=== PATIENT | male | born 1975 | race Caucasian/White ===

== ENCOUNTER 2019-03-15 20:52 | Emergency (ER) | payer BC ==
[2019-03-15 21:03] VITALS: BMI 29.5
[2019-03-15] MEDS ORDERED: KETOROLAC TROMETHAMINE 30 MG/1 ML VIAL IM ONE (22:01)
[2019-03-15] MEDS ORDERED: ONDANSETRON 4 MG/2 ML VIAL IVPUSH ONE (22:01)
[2019-03-15] MEDS ORDERED: KETOROLAC TROMETHAMINE 30 MG/1 ML VIAL ONE (22:02)
[2019-03-15] MEDS ORDERED: ONDANSETRON 4 MG/2 ML VIAL ONE (22:03)
[2019-03-15 22:23] LABS: BASO % 0.3 % (0-2.0); EOS % 0.3 % (0-4.5); HEMATOCRIT 49.1 % (35.4-49); HEMOGLOBIN 15.8 GM/dL (11.7-16.9); MCH 27.5 pg (25.7-33.7); MCHC 32.3 g/dl (32.0-35.9); MEAN CELL VOLUME 85.3 fl (80-96); MEAN PLT VOLUME 9.9 fl (7.5-11.1); MONO % 5.4 % (3.8-10.2); PLATELET COUNT 322 K/MM3 (134-434); RBC 5.75 M/mm3 (4.00-5.60); RDW 13.8 % (11.9-15.9); WHITE BLOOD COUNT 15.6 K/mm3 (4.0-10.0)
--- NOTE | 2019-03-15 22:29 | PDOC ---
Documentation entered by Patricia Henderson SCRIBE, acting as scribe for Iggy Donahue MD. Iggy Donahue MD: This documentation has been prepared by the Santiago menendez Sammi, SCRIBE, under my direction and personally reviewed by me in its entirety. I confirm that the documentation accurately reflects all work, treatment, procedures, and medical decision making performed by me. Attending Attestation - Resident Resident Name: Rachid Urbina - ED Attending Attestation I have performed the following: I have examined & evaluated the patient, The case was reviewed & discussed with the resident, I agree w/resident's findings & plan, Exceptions are as noted - HPI HPI: 03/15/19 22:10 The patient is a 44 year old male, with no significant PMH, who presents to the emergency department for evaluation of sudden onset left flank pain and groin pain at 7pm tonight. He reports associated nausea, vomiting, and diaphoresis. Denies dysuria, hematuria, testicular or scrotal pain. Denies fever or chills. The patient states he was fine prior to symptoms other than a short period of pain to tip of penis earlier today which has subsided. Denies history of kidney stones or similar symptoms. - Physicial Exam PE: 03/15/19 22:08 GENERAL: The patient is awake, alert, and fully oriented, appears to be in pain HEAD: Normocephalic, atraumatic. ABDOMEN: Soft, nontender, No guarding, no rebound. No CVA tenderness : circumcised penis, no rashes, +cremesteric reflex intact, no scrotal tenderness/edema - Medical Decision Making 03/15/19 22:10 suspect kidney stone no signs of testicular torsion will give toradol/zofran for sx releave will ck labs, ua, ct 03/16/19 00:29 labs noted for cr of 1.4, pt does have a leukocytosis to 15, but suspect may be due to acute stress response from pain as no signs of infection on ua pts ct noted for 3mm UVJ stone on left pt still in pain will give her another dose of morphine will reassess 03/16/19 00:31 pt feeling improved currently, but had jujst felt a wave of pain. would like to be reassessed in 30 min, if he feels ok and the pain is manageable would like to consider outpatient management. 03/16/19 02:09 pt feeling improved would like to try outpatient mangement will dc with meds and urology fu return percautions were discussed
[2019-03-15 22:35] LABS: INR 1.46 (0.83-1.09); PROTHROMBIN TIME (PATIENT) 17.3 SEC (9.7-13.0)
--- NOTE | 2019-03-15 22:43 | PDOC ---
History of Present Illness - General Chief Complaint: Pain, Acute Stated Complaint: ABD PAIN Time Seen by Provider: 03/15/19 21:35 History Source: Patient Exam Limitations: No Limitations - History of Present Illness Initial Comments: 03/15/19 22:21 44M w/ no significant pmh presents to [facility] w/ complaint of sudden onset severe (10/10 pain) left-sided lower back pain causing him to double over ~1900 w/a nausea, no vomiting. Subsequent urine was normal coloration, no dysuria. One day prior had mild tingling pain at urethra which spontaneously resolved. Denies h/o kidney stones. Denies h/o STDs. Timing/Duration: 1-3 hours Severity: severe Associated Symptoms: reports: fever/chills (chills), nausea/vomiting, other ( diaphoresis). denies: chest pain, cough, diaphoresis, headaches, shortness of breath, syncope Past History - Travel Traveled outside of the country in the last 30 days: No Close contact w/someone who was outside of country & ill: No - Past Medical History Allergies/Adverse Reactions: Allergies Allergy/AdvReac Type Severity Reaction Status Date / Time No Known Allergies Allergy Verified 03/15/19 20:58 Home Medications: Ambulatory Orders Ibuprofen [Motrin -] 600 mg PO QID PRN 3 Days #12 tablet 03/16/19 Oxycodone HCl/Acetaminophen [Percocet 5-325 mg Tablet -] 1 - 2 combo PO Q6H PRN #14 tablet MDD 8 03/16/19 Tamsulosin HCl [Flomax] 0.4 mg PO DAILY PRN 5 Days #5 capsule 03/16/19 Cardiac Disorders: No COPD: No - Surgical History Abdominal Surgery: Yes (inguinal hernia) - Family Disease History Family Disease History: CA: Father (lung cancer) - Suicide/Smoking/Psychosocial Hx Smoking History: Current every day smoker Have you smoked in the past 12 months: Yes Number of Cigarettes Smoked Daily: 0 Information on smoking cessation initiated: Yes Hx Alcohol Use: Yes Drug/Substance Use Hx: Yes (marijuana) Review of Systems - Review of Systems Able to Perform ROS?: Yes Is the patient limited Palestinian proficient: No Constitutional: Yes: Chills, Diaphoresis. No: Fever, Malaise HEENTM: No: Eye Pain, Blurred Vision, Double Vision Respiratory: No: Cough, Orthopnea, Shortness of Breath, SOB with Exertion, SOB at Rest, Wheezing, Productive cough Cardiac (ROS): No: Chest Pain, Irregular Heart Rate, Palpitations, Chest Tightness ABD/GI: Yes: Nausea, Abdominal cramping, Other (lower back pain). No: Constipated, Diarrhea, Difficulty Swallowing : Yes: Flank Pain (Left greater than right). No: Burning, Dysuria, Incontinence Integumentary: No: Dryness, Erythema Neurological: Yes: Tingling (distal extremities). No: Headache, Numbness *Physical Exam - Vital Signs Last Vital Signs Temp Pulse Resp BP Pulse Ox 97.7 F 79 20 129/85 100 03/15/19 20:58 03/15/19 20:58 03/15/19 20:58 03/15/19 20:58 03/15/19 20:58 - Physical Exam General Appearance: Yes: Nourished, Apparent Distress, Obese HEENT: negative: Pale Conjunctivae, Scleral Icterus (R), Scleral Icterus (L) Neck: positive: Trachea midline. negative: Lymphadenopathy (R), Lymphadenopathy (L) Respiratory/Chest: positive: Lungs Clear. negative: Respiratory Distress, Accessory Muscle Use, Rapid RR, Paradoxal Breathing, Crackles, Rales, Rhonchi, Stridor Cardiovascular: positive: Regular Rhythm, Regular Rate, S1, S2. negative: Irregularly Irregular Gastrointestinal/Abdominal: positive: Soft, Tenderness (TTP of lower abd b/l), Other. negative: Distended, Guarding, Rebound Male Genitalia: positive: normal genitalia, other (intact b/l cremaster reflex) . negative: discharge, testicular tenderness, testicular mass Musculoskeletal: positive: CVA Tenderness (L CVA) Extremity: negative: Swelling, Calf Tenderness Neurologic: positive: Fully Oriented, Alert. negative: Confused ED Treatment Course - LABORATORY CBC & Chemistry Diagram: 03/15/19 21:00 03/15/19 22:13 - Medications Given in the ED: ED Medications Discontinued Medications Generic Name Dose Route Start Last Admin Trade Name Freq PRN Reason Stop Dose Admin Ketorolac Tromethamine 30 mg 03/15/19 22:01 03/15/19 22:05 Toradol Injection - IM 03/15/19 22:02 30 mg ONCE ONE Administration Ondansetron HCl 4 mg 03/15/19 22:01 03/15/19 22:05 Zofran Injection IVPUSH 03/15/19 22:02 4 mg ONCE ONE Administration Medical Decision Making - Medical Decision Making 03/15/19 23:06 44M w/ no significant PMH presenting with severe Left-sided flank and abd pain likely 2/2 nephrolithiasis - fu CBC, CMP, INR - administer toradol 15mg IV - fu CT spiral renal 03/16/19 00:03 - administer morphine 4mg prior CT spiral renal 03/16/19 00:18 - signed out to Dr Chavez *DC/Admit/Observation/Transfer Diagnosis at time of Disposition: Renal calculus - Discharge Dispostion Disposition: HOME Condition at time of disposition: Improved - Prescriptions Prescriptions: Ibuprofen [Motrin -] 600 mg PO QID PRN 3 Days #12 tablet PRN Reason: Kidney Stone Oxycodone HCl/Acetaminophen [Percocet 5-325 mg Tablet -] 1 - 2 combo PO Q6H PRN #14 tablet MDD 8 PRN Reason: Pain Tamsulosin HCl [Flomax] 0.4 mg PO DAILY PRN 5 Days #5 capsule PRN Reason: Kidney Stone - Referrals Referrals: Simone Rojas MD [Staff Physician] - - Patient Instructions Printed Discharge Instructions: DI for Kidney Stones Additional Instructions: Today you were evaluated for a kidney stone. If you have worse pain that you cannot handle, nausea, vomiting, fever, become unable to urinate, or have any other new or concerning symptoms, please return to the emergency room. We have sent prescriptions for Flomax to help the stone pass, as well as Motrin and Percoet for pain. Drink lots of fluids and the stone should pass soon. Please see a urologist in the next 3 days for further care, we have included a referral for Dr. Rojas. - Post Discharge Activity
[2019-03-15 22:50] LABS: ALBUMIN 4.3 g/dl (3.4-5.0); BILIRUBIN,TOTAL 0.8 mg/dL (0.2-1); CREATININE 1.4 mg/dL (0.55-1.3); TOT PROT 8.1 g/dl (6.4-8.2)
[2019-03-15] MEDS ORDERED: SODIUM CHLORIDE 1,000 ML IV SCH (23:00)
[2019-03-15 23:08] LABS: URINE APPEARANCE Clear; URINE BILIRUBIN Negative (NEGATIVE); URINE COLOR Yellow; URINE GLUCOSE (UA) Negative (NEGATIVE); URINE KETONE 3+ (NEGATIVE); URINE LEUK ESTERASE Negative (NEGATIVE); URINE NITRITE Negative (NEGATIVE); URINE PROTEIN Negative (NEGATIVE); URINE UROBILINOGEN 0.2 mg/dL (0.2-1.0)
[2019-03-15] MEDS ORDERED: morphine CARPU-JECT 4 MG/1 ML DISP.SYRIN IVPUSH ONE (23:18)
[2019-03-15] MEDS ORDERED: morphine SULFATE 4 MG/ML VIAL ONE (23:20)
[2019-03-15 23:23] LABS: EPI CELLS 1.3 /HPF (0-5/HPF); HYALINE CASTS 1.4 /lpf (0-8); URINE BACTERIA 0.7 /hpf (NEGATIVE); URINE RBC 2.5 /hpf (0-4); URINE WBC 0.3 /hpf (0-5)
[2019-03-16] MEDS ORDERED: SODIUM CHLORIDE 0.9% 500 ML INFUS.BAG IV ONE (00:19)
[2019-03-16] MEDS ORDERED: morphine CARPU-JECT 4 MG/1 ML DISP.SYRIN IVPUSH ONE (00:22)
--- NOTE | 2019-03-16 00:22 | PDOC ---
*Physical Exam - Vital Signs Last Vital Signs Temp Pulse Resp BP Pulse Ox 97.7 F 79 20 129/85 100 03/15/19 20:58 03/15/19 20:58 03/15/19 20:58 03/15/19 20:58 03/15/19 20:58 - Physical Exam General Appearance: Yes: Nourished, Appropriately Dressed, Mild Distress HEENT: positive: Normal Voice, Symmetrical. negative: Scleral Icterus (R), Scleral Icterus (L) Neck: positive: Supple. negative: Tender, Lymphadenopathy (R), Lymphadenopathy (L) Respiratory/Chest: positive: Lungs Clear, Normal Breath Sounds. negative: Respiratory Distress Cardiovascular: positive: Regular Rhythm, Regular Rate Gastrointestinal/Abdominal: positive: Tender (L side), Soft. negative: Pulsatile Mass Extremity: positive: Normal Capillary Refill, Normal Inspection, Normal Range of Motion. negative: Tender Integumentary: positive: Normal Color, Dry, Warm Neurologic: positive: Fully Oriented, Alert, Normal Mood/Affect, Normal Response ED Treatment Course - LABORATORY CBC & Chemistry Diagram: 03/15/19 21:00 03/15/19 22:13 - ADDITIONAL ORDERS Additional order review: Laboratory Results 03/15/19 03/15/19 03/15/19 22:59 22:13 21:00 PT with INR 17.30 H INR 1.46 H Sodium 139 Potassium 4.0 Chloride 102 Carbon Dioxide 24 Anion Gap 13 BUN 16.0 Creatinine 1.4 H Est GFR (CKD-EPI)AfAm 69.34 Est GFR (CKD-EPI)NonAf 59.83 Random Glucose 105 Calcium 10.0 Total Bilirubin 0.8 AST 23 ALT 48 Alkaline Phosphatase 74 Total Protein 8.1 Albumin 4.3 Urine Color Yellow Urine Appearance Clear Urine pH 8.0 Ur Specific Parker 1.020 Urine Protein Negative Urine Glucose (UA) Negative Urine Ketones 3+ H Urine Blood Trace-intact Urine Nitrite Negative Urine Bilirubin Negative Urine Urobilinogen 0.2 Ur Leukocyte Esterase Negative Urine WBC (Auto) 0.3 Urine RBC (Auto) 2.5 Urine Casts (Auto) 1.4 U Epithel Cells (Auto) 1.3 Urine Bacteria (Auto) 0.7 03/15/19 21:00 RBC 5.75 H MCV 85.3 MCHC 32.3 RDW 13.8 MPV 9.9 Neutrophils % 75.0 Lymphocytes % 19.0 Monocytes % 5.4 Eosinophils % 0.3 Basophils % 0.3 - Medications Given in the ED: ED Medications Discontinued Medications Generic Name Dose Route Start Last Admin Trade Name Jessee PRN Reason Stop Dose Admin Ketorolac Tromethamine 30 mg 03/15/19 22:01 03/15/19 22:05 Toradol Injection - IM 03/15/19 22:02 30 mg ONCE ONE Administration Morphine Sulfate 4 mg 03/15/19 23:18 03/15/19 23:22 Morphine Injection - IVPUSH 03/15/19 23:19 4 mg ONCE ONE Administration Ondansetron HCl 4 mg 03/15/19 22:01 03/15/19 22:05 Zofran Injection IVPUSH 03/15/19 22:02 4 mg ONCE ONE Administration Medical Decision Making - Medical Decision Making 03/16/19 00:18 Signed out to me by Dr. Urbina. Acute onset flank and abdominal pain. CT scan shows 3mm stone in left UVJ. Giving 1L NS bolus, 4mg morphine for continued pain. Will re-assess at 2AM for pain control, if he needs more opioids he can be admitted for intractable pain until the stone passes. 03/16/19 02:15 CT abd shows L ureteral stone at the [facility]. Patient says he would be okay with going home to pass the stone instead of staying here. Will send scripts for flomax, motrin, and Percocets for breakthrough pain to home pharmacy. Referral to Dr. Rojas urologist if needed. *DC/Admit/Observation/Transfer Diagnosis at time of Disposition: Renal calculus - Discharge Dispostion Disposition: HOME Condition at time of disposition: Improved Decision to Admit order: No - Prescriptions Prescriptions: Ibuprofen [Motrin -] 600 mg PO QID PRN 3 Days #12 tablet PRN Reason: Kidney Stone Oxycodone HCl/Acetaminophen [Percocet 5-325 mg Tablet -] 1 - 2 combo PO Q6H PRN #14 tablet MDD 8 PRN Reason: Pain Tamsulosin HCl [Flomax] 0.4 mg PO DAILY PRN 5 Days #5 capsule PRN Reason: Kidney Stone - Referrals Referrals: Simone Rojas MD [Staff Physician] - - Patient Instructions Printed Discharge Instructions: DI for Kidney Stones Additional Instructions: Today you were evaluated for a kidney stone. If you have worse pain that you cannot handle, nausea, vomiting, fever, become unable to urinate, or have any other new or concerning symptoms, please return to the emergency room. We have sent prescriptions for Flomax to help the stone pass, as well as Motrin and Percoet for pain. Drink lots of fluids and the stone should pass soon. Please see a urologist in the next 3 days for further care, we have included a referral for Dr. Rojas. - Post Discharge Activity
[2019-03-16] MEDS ORDERED: morphine SULFATE 4 MG/ML VIAL ONE (00:28)
[2019-03-16 02:33] VITALS: BP 139/82; PULSE 78; TEMP 97.6
== END 2019-03-16 02:32 | disposition home or self-care (01) ==
LOC: JER 20:52
PROC: 3E0333Z Introduction of Anti-inflammatory into Peripheral Vein, Percutaneous Approach (ICD-10-PCS; principal; 2019-03-15)
PROC: 3E033NZ Introduction of Analgesics, Hypnotics, Sedatives into Peripheral Vein, Percutaneous Approach (ICD-10-PCS; 2019-03-15)
PROC: 3E0337Z Introduction of Electrolytic and Water Balance Substance into Peripheral Vein, Percutaneous Approach (ICD-10-PCS; 2019-03-15)
PROC: 3E033GC Introduction of Other Therapeutic Substance into Peripheral Vein, Percutaneous Approach (ICD-10-PCS; 2019-03-15)
DX: N13.2 Hydronephrosis with renal and ureteral calculous obstruction (principal); F17.210 Nicotine dependence, cigarettes, uncomplicated
CPT/HCPCS: 36415; 74176-TC; 80053; 81003; 85025; 85610; 99283-25; J7030